=== PATIENT | female | born 1980 ===

== ENCOUNTER 2016-12-25 11:04 | Emergency (ER) | payer OTHER ==
[2016-12-25] MEDS ORDERED: NS 0.9% 1000 ML* 1,000 ML IV ONE (13:52)
[2016-12-25] MEDS ORDERED: Ketorolac INJ* 30 MG/ML 1 ML VIAL IV ONE (13:52)
[2016-12-25] MEDS ORDERED: diPHENhydraMINE IV* 50 MG/ML 1 ml VIAL (BENADRYL) IV ONE (13:52)
[2016-12-25] MEDS ORDERED: Metoclopramide IV* 5 MG/ML 2 ML VIAL IV ONE (13:52)
--- NOTE | 2016-12-25 15:32 | RAD ---
INDICATION: Fall. Elbow injury COMPARISON: None TECHNIQUE: AP, lateral, and oblique views were obtained. FINDINGS: The bony structures, joint spaces, and soft tissues are normal for age. IMPRESSION: NO ACUTE FRACTURE
--- NOTE | 2016-12-25 15:33 | RAD ---
INDICATION: Possible intracranial injury. Fall from a a horse COMPARISON: None TECHNIQUE: Noncontrast axial source images were acquired from the skull base to the vertex. FINDINGS: Ventricles/sulci: The ventricles and cisterns are normal in size and configuration for age. Brain parenchyma: There is no focal parenchymal finding, evidence of intracranial mass, or intracranial mass effect. Intracranial hemorrhage:None. Extra-axial spaces: There are no abnormal extra axial fluid collections or evidence of extra-axial mass. Calvarium: There is no calvarial fracture or other calvarial abnormality. Scalp: There is no evidence of scalp or extracalvarial soft tissue abnormality. Paranasal sinuses/mastoid: The paranasal sinuses and mastoid air cells are clear. Other: None. IMPRESSION: NEGATIVE EXAMINATION
[2016-12-25 16:46] VITALS: BP 94/58
--- NOTE | 2016-12-29 07:16 | ED ---
Jose L Mcclain Alfonso, scribed for Bret Jhaveri MD on 12/25/16 at 1424 . Headache - HPI Summary HPI Summary: This patient is a 36 year old female presenting to [facility] c/o an occipital headache since one week ago. The headache is constant and localized to an area of recent head trauma. She reports falling off a horse without a helmet one month ago, hitting her head, back, and left arm. She reports LOC for a short moment. She rates the pain 4/10 in severity. Headache symptoms aggravated by bright lights and alleviated by nothing. Arm pain aggravated by movement. She reports photophobia, nausea, and diffuse left arm pain. She denies neck pain and numbness. This patient is right handed. She denies PMHx of migraines. NKDA. - History Of Current Complaint Chief Complaint: EDHeadache Stated Complaint: HEADACHE/LT ARM PAIN Time Seen by Provider: 12/25/16 13:34 Hx Obtained From: Patient Onset/Duration: Sudden Onset, Started weeks ago - 1 week ago, Still Present Initially Headache Was: Moderate Currently Pain Is: Moderate Timing: Constant Location of Headache: Occipital Aggravating Factor: Bright Lights, Other - Left arm pain aggravated by movement Allevating Factors: Nothing Associated Signs And Symptoms: Nausea, Decreased LOC - Brief after the fall - Allergies/Home Medications Allergies/Adverse Reactions: Allergies Allergy/AdvReac Type Severity Reaction Status Date / Time No Known Allergies Allergy Verified 12/25/16 14:08 PMH/Surg Hx/FS Hx/Imm Hx Opthamlomology History: Denies: Hx Legally Blind EENT History: Denies: Hx Deafness Infectious Disease History: No Infectious Disease History: Denies: Traveled Outside the [place] in Last 30 Days - Family History Known Family History: Negative: Cardiac Disease - Social History Alcohol Use: Occasionally Substance Use Type: Reports: None Smoking Status (MU): Never Smoked Tobacco Review of Systems Negative: Fever Positive: Photophobia Positive: Nausea Positive: Arthralgia - Diffuse left arm, Other - Negative neck pain Positive: Headache. Negative: Numbness All Other Systems Reviewed And Are Negative: Yes Physical Exam - Summary Physical Exam Summary: The patient is well-nourished in no acute distress and in no acute pain. No keita signs. The skin is warm and dry and skin color reflects adequate perfusion. HEENT: The head is normocephalic and atraumatic. No evidence of basal skull fracture. No step off or deformities. No reproducible scalp pain. The pupils are equal and reactive. Slight photophobia. The conjunctivae are clear and without drainage. Nares are patent and without drainage. Mouth reveals moist mucous membranes and the throat is without erythema and exudate. The external ears are intact. The ear canals are patent and without drainage. The tympanic membranes are intact and there is no blood. Neck is supple with full range of motion and non-tender. There are no carotid bruits. There is no neck vein distension. No reproducible neck pain. Respiratory: Chest is non-tender. Lungs are clear to auscultation and breath sounds are symmetrical and equal. Cardiovascular: Heart is regular rate and rhythm. There is no murmur or rub auscultated. There is no peripheral edema and pulses are symmetrical and equal. Abdomen: The abdomen is soft and non-tender. There are normal bowel sounds heard in all four quadrants and there is no organomegaly palpated. Musculoskeletal: There is no back pain noted. Extremities are non-tender with full range of motion. There is good capillary refill. There is no peripheral edema or calf tenderness elicited. No straight leg raising pain. Elbow tender at ulnar aspect and with flexion and extension. No swelling of elbow. No decreased sensation. No pain in acromion. Neurological: Patient is alert and oriented to person, place and time. The patient has symmetrical motor strength in all four extremities. Cranial nerves are grossly intact. Deep tendon reflexes are symmetrical and equal in all four extremities. Distal radial and ulnar nerves intact. GCS: 15 Psychiatric: The patient has an appropriate affect and does not exhibit any anxiety or depression. Triage Information Reviewed: Yes Vital Signs On Initial Exam: Initial Vitals Temp Pulse Resp BP Pulse Ox 98.2 F 83 16 117/68 98 12/25/16 11:06 12/25/16 11:06 12/25/16 11:06 12/25/16 11:06 12/25/16 11:06 Vital Signs Reviewed: Yes - Carole Coma Scale Coma Scale Total: 15 Diagnostics - Vital Signs Vital Signs Temp Pulse Resp BP Pulse Ox 12/25/16 14:09 96.3 F 83 16 117/68 98 12/25/16 11:06 98.2 F 83 16 117/68 98 - Laboratory Lab Results: Lab Results 12/25/16 Range/Units 13:55 Beta HCG, Quant < 0.60 mIU/mL Lab Statement: Any lab studies that have been ordered have been reviewed, and results considered in the medical decision making process. - Radiology Elbow X-Ray Radiology Interpretation Completed By: Radiologist - No acute fracture - CT CT Brain CT Interpretation Completed By: Radiologist - Negative exam Re-Evaluation - Re-Evaluation First Eval Re-Evaluation Time: 15:45 Comment: Discussed imaging results with patient and she understands. Patient is agreeable to discharge. Headache Course/Dx - Course Course Of Treatment: A 36 year-old F presents to the ED with a CC of an occipital headache for week. She fell of a horse a month ago, reporting head trauma and brief LOC. She reports LOC, photophobia, nausea, and diffuse left arm pain. She denies neck pain and numbness. A CT Brain reveals a negative exam. An elbow X-Ray reveals no acute fracture. Patient will be discharged with follow up from PCP and physcial therapy. Pt is agreeable with this plan. - Diagnoses Differential Diagnosis/HQI/PQRI: Subdural Hematoma, Subarachnoid Hemorrhage Provider Diagnoses: Brain concussion, Sprain of left elbow Discharge - Discharge Plan Condition: Stable Disposition: HOME Prescriptions: Ondansetron ODT TAB* [Zofran 4 MG Odt TAB*] 4 mg PO Q8H PRN #20 tab.odt PRN Reason: Nausea Patient Education Materials: Concussion (ED), Elbow Sprain (ED) Referrals: [facility]IAN REFERRAL [Outside] - 1 Week Oscar Hyde MD [Medical Doctor] - 1 Week The documentation as recorded by the Jose L hicks Alfonso accurately reflects the service I personally performed and the decisions made by me, Bret Jhaveri MD.
== END 2016-12-25 16:25 | disposition home or self-care (01) ==
LOC: ED 11:04
DX: S06.0X9A Concussion with loss of consciousness of unspecified duration, initial encounter (principal); S53.402A Unspecified sprain of left elbow, initial encounter; V80.010A Animal-rider injured by fall from or being thrown from horse in noncollision accident, initial encounter; Y92.9 Unspecified place or not applicable
CPT/HCPCS: 36415; 70450; 84702; 96372; 96374; 96375; 99282; J1200; J1885

== ENCOUNTER 2019-09-09 09:52 | Emergency (ER) | payer OTHER ==
--- NOTE | 2019-09-09 10:37 | ED ---
Shortness of Breath - HPI Summary HPI Summary: 39-year-old female presents to the emergency department today complaining of shortness of breath for 5 days. Patient states she has had sneezing, shortness breath, chest pressure, runny nose. Patient states her sneezing, runny nose have resolved but she still has associated chest pressure which was made worse morning. Patient has been self quarantined herself but due to the increased chest pressure wanted to be evaluated in the emergency department. Patient endorses travel to [facility] over recent weeks but does not believe this was done in the last 14 days. Patient has not taken any medication prior to arrival for alleviation of her symptoms. Patient is considered low risk for COVID virus. Patient otherwise feels well and denies fever, abdominal pain, nausea, vomiting, diarrhea, rash. Patient has no contact with those known with known coronavirus or those under investigation. - History of Current Complaint Chief Complaint: EDShortnessOfBreath Time Seen by Provider: 09/09/19 10:10 Hx Obtained From: Patient Onset/Duration: Gradual Onset Timing: Constant Dyspnea At: Rest Associated Signs & Symptoms: Cough (Nonproductive) - Allergy/Home Medications Allergies/Adverse Reactions: Allergies Allergy/AdvReac Type Severity Reaction Status Date / Time No Known Allergies Allergy Verified 09/09/19 10:06 Home Medications: Home Medications NK [No Home Medications Reported] 09/09/19 [History Confirmed 09/09/19] PMH/Surg Hx/FS Hx/Imm Hx Sensory History: Denies: Hx Legally Blind, Hx Deafness Opthamlomology History: Denies: Hx Legally Blind Infectious Disease History: No Infectious Disease History: Denies: Traveled Outside the in Last 30 Days - Family History Known Family History: Negative: Cardiac Disease - Social History Alcohol Use: Occasionally Substance Use Type: Reports: None Smoking Status (MU): Current Some Day Smoker Review of Systems Constitutional: Negative Eyes: Negative ENT: Negative Positive: Shortness Of Breath. Negative: Cough Gastrointestinal: Negative Genitourinary: Negative Musculoskeletal: Negative Skin: Negative Neurological/Mental Status: Negative Positive: Anxious All Other Systems Reviewed And Are Negative: Yes Physical Exam - Summary Physical Exam Summary: Patient was in no acute distress. Patient spoke in full on broken sentences and had no evidence of accessory muscle use. Lungs were clear to auscultation bilaterally. Triage Information Reviewed: Yes Vital Signs On Initial Exam: Initial Vitals Temp Pulse Resp BP Pulse Ox 98.6 F 98 18 127/87 100 09/09/19 09:57 09/09/19 09:57 09/09/19 09:57 09/09/19 09:57 09/09/19 09:57 Vital Signs Reviewed: Yes Appearance: Positive: Well-Appearing, No Pain Distress, Well-Nourished Skin: Positive: Warm, Skin Color Reflects Adequate Perfusion Eyes: Positive: EOMI, MICHAEL ENT: Positive: Hearing grossly normal Respiratory/Lung Sounds: Positive: Clear to Auscultation, Breath Sounds Present Cardiovascular: Positive: RRR, S1, S2 Abdomen Description: Positive: Nontender, Soft Musculoskeletal: Positive: Strength/ROM Intact Neurological: Positive: Sensory/Motor Intact, Alert, Oriented to Person Place, Time, Normal Gait, Facial Symmetry, Speech Normal Psychiatric: Positive: Normal, Affect/Mood Appropriate AVPU Assessment: Alert Procedures - Sedation Patient Received Moderate/Deep Sedation with Procedure: No Diagnostics - Vital Signs Vital Signs Temp Pulse Resp BP Pulse Ox 09/09/19 10:16 98 124/82 100 09/09/19 10:15 83 98 09/09/19 09:57 98.6 F 98 18 127/87 100 - Laboratory Lab Statement: Any lab studies that have been ordered have been reviewed, and results considered in the medical decision making process. Course/Dx - Course Course Of Treatment: Patient was evaluated in the emergency department today due to shortness of breath. I also noted and stable. Patient afebrile. Patient was considered low risk for coronavirus. Influenza serology negative chest x-ray showed no acute pathology. Patient was given Mucinex and emergency department for likely upper respiratory infection and discharged to outpatient follow-up. There was a significant level of underlying anxiety with the patient believing she had coronavirus. - Diagnoses Differential Diagnosis/HQI/PQRI: Positive: Asthma, Bronchitis, Pneumonia Provider Diagnoses: Upper respiratory infection Discharge ED - Sign-Out/Discharge Documenting (check all that apply): Patient Departure - Discharge Plan Condition: Stable Disposition: HOME Patient Education Materials: Upper Respiratory Infection (ED) Referrals: No Primary Care Phys,NOPCP [Primary Care Provider] - [facility] [Outside] - 3 Days Additional Instructions: You have an upper respiratory virus which causes cough, muscle aches, fever, nausea, trouble breathing. Viruses are self-limiting and will go away on their own. Be sure to stay hydrated and rest. You may take [id number] decongestants as needed for your symptoms as well as NyQuil at night to improve sleep. Take Tylenol every 6 hours as needed for fever. Please see your primary care physician in 5 days for further evaluation and management. Please do not return to work or school until 24 hours after your fever breaks. Please return to the emergency department immediately if you develop any new or worsening symptoms. - Billing Disposition and Condition Condition: STABLE Disposition: Home
[2019-09-09] MEDS ORDERED: guaiFENesin ER TAB 600 MG PO ONE (11:05)
[2019-09-09 11:31] LABS: Influenza A Molecular Negative (Negative); Influenza B Molecular Negative (Negative)
[2019-09-09 12:00] VITALS: BP 126/81
== END 2019-09-09 11:59 | disposition home or self-care (01) ==
LOC: ED 09:52
DX: J06.9 Acute upper respiratory infection, unspecified (principal); R05 Cough; R06.02 Shortness of breath; F41.9 Anxiety disorder, unspecified; Z72.0 Tobacco use
CPT/HCPCS: 71046; 99282; A9270-GY